=== PATIENT | male | born 1990 | race Hispanic/Latino ===

== ENCOUNTER 2020-12-24 13:24 | Emergency (ER) | payer SELFPAY ==
[2020-12-24] MEDS ORDERED: PENICILLIN G BENZATHINE LA 1.2 MILUNITS/2 ML SYG IM ONE (13:25)
[2020-12-24] MEDS ORDERED: KETOROLAC TROMETHAMINE 30MG/ML ONE (14:03)
[2020-12-24] MEDS ORDERED: HYDROCODONE/ACETAMINOPHEN 5/325 MG TAB ONE (14:03)
== END 2020-12-24 15:11 | disposition home or self-care (01) ==
LOC: EDH 13:24
DX: K04.7 Periapical abscess without sinus (principal); K03.81 Cracked tooth; K02.9 Dental caries, unspecified
CPT/HCPCS: 96372 ×2; 99284; J0561; J1885